=== PATIENT | female | born 1975 ===

== ENCOUNTER 2020-09-09 22:10 | Emergency (ER) | payer BC ==
[2020-09-09] MEDS ORDERED: Sodium Chloride 0.9% 10 ML Syringe FLUSH PRN (22:35)
[2020-09-09] MEDS ORDERED: Dexamethasone 4 MG/ML SDV IVPUSH ONE (22:42)
--- NOTE | 2020-09-09 22:45 | EDM.PDOC ---
ED HPI GENERAL MEDICAL PROBLEM - General Chief Complaint: Respiratory Problem Stated Complaint: COVID +, SOB Time Seen by Provider: 09/09/20 22:18 Source of Information: Reports: Patient History Limitations: Reports: No Limitations - History of Present Illness INITIAL COMMENTS - FREE TEXT/NARRATIVE: The patient presents with COVID 19, cough and shortness of breath. She first s tarted having a cough on 08/27. She was tested after that and on the she was found to be COVID positive. She is supposed to be off quarantine today but for the past few days she has been more short of breath. She cannot walk a few feet without being winded. She has no fever or chills. She coughs a lot and every time she takes a deep breath she coughs. She has no chest pain. She has no history of asthma or COPD. She does not smoke. She has a history of diabetes. She has no history of heart problems. She has no HTN or hypercholesterolemia. She has generalized weakness. She does have a loss of taste and smell. Onset: Gradual Duration: Week(s): Severity: Moderate Improves with: Reports: None Worsens with: Reports: None Associated Symptoms: Reports: Cough, Shortness of Breath. Denies: Chest Pain, Fever/Chills, Headaches, Nausea/Vomiting Upper Back Pain Score (Numeric/FACES): 7 - Related Data Allergies Allergy/AdvReac Type Severity Reaction Status Date / Time lisinopril Allergy Cough Verified 09/09/20 22:18 Home Meds: Home Meds Cholecalciferol (Vitamin D3) [Vitamin D] 5,000 unit PO DAILY 09/09/20 [History] FLUoxetine HCl [Fluoxetine HCl] 60 mg PO DAILY 09/09/20 [History] Levothyroxine [Synthroid] 88 mcg PO ACBREAKFAST 09/09/20 [History] Losartan [Cozaar] 50 mg PO DAILY 09/09/20 [History] hydrOXYzine HCL [Atarax] 50 mg PO DAILY PRN 09/09/20 [History] Past Medical History HEENT History: Reports: Impaired Vision Cardiovascular History: Reports: High Cholesterol, Hypertension 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 (See Below) Other INSPECT[employer] EYE[employer]ASS History: tubal ligation Psychiatric History: Reports: Anxiety, Depression Endocrine/Metabolic History: Reports: Diabetes, Type II, Hypothyroidism - Infectious Disease History Infectious Disease History: Reports: Novel Coronavirus - Past Surgical History HEENT Surgical History: Reports: None Cardiovascular Surgical History: Reports: Other (See Below) Other Cardiovascular Surgeries/Procedures: heart surgery as a child- 2holes in hert GI Surgical History: Reports: Cholecystectomy Social & Family History - Tobacco Use Tobacco Use Status *Q: Never Tobacco User - Caffeine Use Caffeine Use: Reports: Coffee - Recreational Drug Use Recreational Drug Use: No ED ROS GENERAL - Review of Systems Review Of Systems: See Below Constitutional: Reports: Malaise, Weakness, Fatigue. Denies: Fever, Chills HEENT: Reports: No Symptoms Respiratory: Reports: Shortness of Breath, Cough Cardiovascular: Reports: No Symptoms Endocrine: Reports: No Symptoms GI/Abdominal: Reports: No Symptoms : Reports: No Symptoms Musculoskeletal: Reports: No Symptoms ED EXAM, GENERAL - Physical Exam Exam: See Below Exam Limited By: No Limitations General Appearance: Alert, No Apparent Distress Ears: Normal External Exam Nose: Normal Inspection Head: Atraumatic, Normocephalic Neck: Normal Inspection Respiratory/Chest: No Respiratory Distress, Decreased Breath Sounds Cardiovascular: Regular Rate, Rhythm, No Edema, No Murmur GI/Abdominal: Soft, Non-Tender, No Organomegaly, No Mass Back Exam: Normal Inspection Extremities: Normal Inspection Course - Vital Signs Last Recorded V/S: Last Vital Signs Temp 97.6 F 09/09/20 22:18 Pulse 63 09/09/20 22:18 Resp 26 H 09/09/20 22:18 BP 127/83 09/09/20 22:18 Pulse Ox 86 L 09/09/20 22:18 - Orders/Labs/Meds Orders: Active Orders 24 hr Category Date Time Status Cardiac Monitoring [RC] . DIRECTED Care 09/09/20 22:36 Active EKG Documentation Completion [RC] STAT Care 09/09/20 22:36 Active Peripheral IV Care [RC] . DIRECTED Care 09/09/20 22:36 Active Chest 1V Frontal [CR] Stat Exams 09/09/20 22:36 Taken CULTURE BLOOD [BC] Stat Lab 09/09/20 23:10 Received CULTURE BLOOD [BC] Stat Lab 09/09/20 23:16 Received Sodium Chloride 0.9% [Saline Flush] Med 09/09/20 22:35 Active 10 ml FLUSH ASDIRECTED PRN Blood Culture x2 Reflex Set [OM.PC] Stat Oth 09/09/20 22:37 Ordered Peripheral IV Insertion Adult [OM.PC] Stat Oth 09/09/20 22:35 Ordered Medication Orders Sodium Chloride (Saline Flush) 10 ml FLUSH ASDIRECTED PRN PRN Reason: Keep Vein Open Last Admin: 09/09/20 23:25 Dose: 10 ml Documented by: TASNEEM Labs: Laboratory Tests 09/09/20 09/09/20 09/09/20 Range/Units 22:30 22:30 22:30 WBC 6.32 (3.98-10.04) K/mm3 RBC 5.22 (3.98-5.22) M/mm3 Hgb 15.3 (11.2-15.7) gm/dl Hct 45.1 H (34.1-44.9) % MCV 86.4 (79.4-94.8) fl MCH 29.3 (25.6-32.2) pg MCHC 33.9 (32.2-35.5) g/dl RDW Std Deviation 39.5 (36.4-46.3) fL Plt Count 329 (182-369) K/mm3 MPV 9.7 (9.4-12.3) fl Neut % (Auto) 59.3 (34.0-71.1) % Lymph % (Auto) 31.5 (19.3-51.7) % Stephens % (Auto) 7.3 (4.7-12.5) % Eos % (Auto) 1.6 (0.7-5.8) Baso % (Auto) 0.3 (0.1-1.2) % Neut # (Auto) 3.75 (1.56-6.13) K/mm3 Lymph # (Auto) 1.99 (1.18-3.74) K/mm3 Stephens # (Auto) 0.46 H (0.24-0.36) K/mm3 Eos # (Auto) 0.10 (0.04-0.36) K/mm3 Baso # (Auto) 0.02 (0.01-0.08) K/mm3 Manual Slide Review Abnormal smear PT 10.3 (9.7-12.0) SECONDS INR 0.96 APTT 26.5 (21.7-31.4) SECONDS D-Dimer, Quantitative 0.40 (0.19-0.50) mg/L Sodium 138 (136-145) mEq/L Potassium 3.2 L (3.5-5.1) mEq/L Chloride 100 (98-107) mEq/L Carbon Dioxide 27 (21-32) mEq/L Anion Gap 14.2 (5-15) BUN 9 (7-18) mg/dL Creatinine 0.9 (0.55-1.02) mg/dL Est Cr Clr Drug Dosing 64.61 mL/min Estimated GFR (MDRD) > 60 (>60) mL/min BUN/Creatinine Ratio 10.0 L (14-18) Glucose 115 H (74-106) mg/dL Lactic Acid (0.4-2.0) mmol/L Calcium 8.9 (8.5-10.1) mg/dL Ferritin (8-252) ng/ml Total Bilirubin 0.5 (0.2-1.0) mg/dL AST 27 (15-37) U/L ALT 29 (14-59) U/L Alkaline Phosphatase 75 (46-116) U/L Lactate Dehydrogenase 295 H (81-234) U/L Troponin I < 0.017 (0.00-0.056) ng/mL C-Reactive Protein 7.8 H* (<1.0) mg/dL Total Protein 7.8 (6.4-8.2) g/dl Albumin 3.1 L (3.4-5.0) g/dl Globulin 4.7 gm/dL Albumin/Globulin Ratio 0.7 L (1-2) 09/09/20 09/09/20 Range/Units 22:30 23:10 WBC (3.98-10.04) K/mm3 RBC (3.98-5.22) M/mm3 Hgb (11.2-15.7) gm/dl Hct (34.1-44.9) % MCV (79.4-94.8) fl MCH (25.6-32.2) pg MCHC (32.2-35.5) g/dl RDW Std Deviation (36.4-46.3) fL Plt Count (182-369) K/mm3 MPV (9.4-12.3) fl Neut % (Auto) (34.0-71.1) % Lymph % (Auto) (19.3-51.7) % Stephens % (Auto) (4.7-12.5) % Eos % (Auto) (0.7-5.8) Baso % (Auto) (0.1-1.2) % Neut # (Auto) (1.56-6.13) K/mm3 Lymph # (Auto) (1.18-3.74) K/mm3 Stephens # (Auto) (0.24-0.36) K/mm3 Eos # (Auto) (0.04-0.36) K/mm3 Baso # (Auto) (0.01-0.08) K/mm3 Manual Slide Review PT (9.7-12.0) SECONDS INR APTT (21.7-31.4) SECONDS D-Dimer, Quantitative (0.19-0.50) mg/L Sodium (136-145) mEq/L Potassium (3.5-5.1) mEq/L Chloride (98-107) mEq/L Carbon Dioxide (21-32) mEq/L Anion Gap (5-15) BUN (7-18) mg/dL Creatinine (0.55-1.02) mg/dL Est Cr Clr Drug Dosing mL/min Estimated GFR (MDRD) (>60) mL/min BUN/Creatinine Ratio (14-18) Glucose (74-106) mg/dL Lactic Acid 1.3 (0.4-2.0) mmol/L Calcium (8.5-10.1) mg/dL Ferritin 339 H (8-252) ng/ml Total Bilirubin (0.2-1.0) mg/dL AST (15-37) U/L ALT (14-59) U/L Alkaline Phosphatase (46-116) U/L Lactate Dehydrogenase (81-234) U/L Troponin I (0.00-0.056) ng/mL C-Reactive Protein (<1.0) mg/dL Total Protein (6.4-8.2) g/dl Albumin (3.4-5.0) g/dl Globulin gm/dL Albumin/Globulin Ratio (1-2) Meds: Medications Generic Name Dose Route Start Last Admin Trade Name Freq PRN Reason Stop Dose Admin Sodium Chloride 10 ml 09/09/20 22:35 09/09/20 23:25 Saline Flush FLUSH 10 ml ASDIRECTED PRN Administration Keep Vein Open Discontinued Medications Generic Name Dose Route Start Last Admin Trade Name Freq PRN Reason Stop Dose Admin Dexamethasone 6 mg 09/09/20 22:42 09/09/20 23:23 Decadron IVPUSH 09/09/20 22:43 6 mg ONETIME ONE Administration Remdesivir 200 mg/ Sodium 250 mls @ 250 mls/hr 09/10/20 01:00 Chloride IV 09/10/20 01:01 ONETIME ONE - Re-Assessments/Exams Free Text/Narrative Re-Assessment/Exam: 09/09/20 22:47 I ordered an IV saline lock, dexamethasone 6mg IV, labs, EKG, CXR, blood cultures and lactic acid. 09/10/20 01:03 Her CXR shows bilateral patchy areas of pulmonary consolidation, consistent with the patient's known diagnosis of COVID 19 pneumonia. Her EKG shows a NSR with no acute changes. Her CBC looks good. Her D-dimer is negative. Her K is low at 3.2. Her lactic acid is normal. Her ferritin is elevated at 339. Her LDH was elevated at 295. Her CRP is elevated at 7.8. Her troponin is negative. I feel she needs to be admitted. I called [facility] in [place] and talked with Dr Ramirez the hospitalist on and he accepted the patient. He wanted me to give the patient a dose of remdesivir. Departure - Departure Time of Disposition: 01:10 Disposition: DC/Tfer to Acute Hospital 02 Condition: Poor, Serious Clinical Impression: COVID-19, Pneumonia due to COVID-19 virus, Hypoxia - Discharge Information Referrals: Magui Anderson MD [Primary Care Provider] - Forms: ED Department Discharge Sepsis Event Note (ED) - Evaluation Sepsis Screening Result: No Definite Risk - Focused Exam Vital Signs: Vital Signs Temp Pulse Resp BP Pulse Ox 09/09/20 22:18 97.6 F 63 26 H 127/83 86 L - My Orders Last 24 Hours: My Active Orders 09/09/20 22:35 Sodium Chloride 0.9% [Saline Flush] 10 ml FLUSH ASDIRECTED PRN Peripheral IV Insertion Adult [OM.PC] Stat 09/09/20 22:36 Cardiac Monitoring [RC] . DIRECTED EKG Documentation Completion [RC] STAT Peripheral IV Care [RC] . DIRECTED Chest 1V Frontal [CR] Stat 09/09/20 22:37 Blood Culture x2 Reflex Set [OM.PC] Stat 09/09/20 23:10 CULTURE BLOOD [BC] Stat 09/09/20 23:16 CULTURE BLOOD [BC] Stat - Assessment/Plan Last 24 Hours: My Active Orders 09/09/20 22:35 Sodium Chloride 0.9% [Saline Flush] 10 ml FLUSH ASDIRECTED PRN Peripheral IV Insertion Adult [OM.PC] Stat 09/09/20 22:36 Cardiac Monitoring [RC] . DIRECTED EKG Documentation Completion [RC] STAT Peripheral IV Care [RC] . DIRECTED Chest 1V Frontal [CR] Stat 09/09/20 22:37 Blood Culture x2 Reflex Set [OM.PC] Stat 09/09/20 23:10 CULTURE BLOOD [BC] Stat 09/09/20 23:16 CULTURE BLOOD [BC] Stat
[2020-09-10] MEDS ORDERED: REMDESIVIR 200 MG in Sodium Chloride 0.9% 250 ML IV ONE (01:00)
--- NOTE | 2020-09-13 09:45 | CR ---
PROCEDURE INFORMATION: Exam: XR Chest, 1 View Exam date and time: 09/09/2020 10:29 PM Age: 44 years old Clinical indication: Cough and shortness of breath; Patient HX: Covid positive TECHNIQUE: Imaging protocol: XR of the chest Views: 1 view. COMPARISON: DX Chest 2V 08/31/2020 10:35 AM FINDINGS: Lungs: Patchy areas of ill-defined consolidation throughout the lungs bilaterally.Commonly reported imaging features of COVID-19 pneumonia are present. Other processes such as influenza pneumonia and organizing pneumonia, as can be seen with drug toxicity and connective tissue disease, can cause a similar imaging pattern. (Reference: Otilio) Pleural space: Unremarkable. No pleural effusion. No pneumothorax. Heart/Mediastinum: Unremarkable. No cardiomegaly. Bones/joints: Unremarkable. IMPRESSION: Bilateral patchy areas of pulmonary consolidation, consistent with the patient's known diagnosis of COVID-19 pneumonia. REFERENCES: Otilio Jaimes et al., [employer] Society of [place] Expert Consensus Statement on Reporting Chest CT Findings Related to COVID-19. Endorsed by the Society of [employer]acic Radiology, the [employer] [employer], and [employer]NA. Published January 07, 2020. Thank you for allowing us to participate in the care of your patient. Dictated and Authenticated by: Radha Moore MD 09/10/2020 12:02 AM Central Time ([place] & [place]) VANDANA
== END 2020-09-10 02:50 ==
LOC: JD.ED 22:10
DX: U07.1 COVID-19 (principal); J12.89 Other viral pneumonia; R09.02 Hypoxemia; I10 Essential (primary) hypertension; F41.9 Anxiety disorder, unspecified; F32.9 Major depressive disorder, single episode, unspecified; E03.9 Hypothyroidism, unspecified; E11.9 Type 2 diabetes mellitus without complications; Z79.899 Other long term (current) drug therapy; Z88.8 Allergy status to other drugs, medicaments and biological substances
CPT/HCPCS: 36415; 71045; 80053; 82728; 83605; 83615; 84484; 85025; 85379; 85610; 85730; 86140; 87040; 93005; 96365; 96375; 99285; J1100; J7050; 93010; 99284